=== PATIENT | male | born 1995 | race Caucasian/White ===

== ENCOUNTER 2023-07-09 10:41 | Emergency (ER) | payer SELFPAY ==
[~2023-07-09] VITALS: Ht 167.6 cm; Wt 63.5 kg
[2023-07-09 10:58] VITALS: BP 140/110; PULSE 123; RESP 20; TEMP 98.4; O2SAT 98
[2023-07-09] MEDS ORDERED: levETIRAcetam 500 MG TAB PO ONE (11:05)
[2023-07-09] MEDS ORDERED: NACL 0.9% 1,000 ML IV ONE ×2 (11:10→12:05)
[2023-07-09] MEDS ORDERED: levETIRAcetam 1,000 MG in NACL 0.9% 100 ML IV ONE (11:10)
[2023-07-09] MEDS ORDERED: LORazepam 1 MG TAB PO ONE (11:15)
[2023-07-09 11:18] LABS: BASOPHILS % (AUTO) 0.2 % (0.0-2.0); HEMATOCRIT 42.3 % (36-52); HEMOGLOBIN 15.1 g/dL (12.0-18.0); LYMPHOCYTES # (AUTO) 1.1 K/uL (2.0-11.5); LYMPHOCYTES % (AUTO) 10.2 % (20.5-51.1); MEAN CORPUSCULAR HEMOGLOBIN 33 pg (27-31); MEAN CORPUSCULAR HGB CONC 36 g/dL (33-37); MEAN CORPUSCULAR VOLUME 90.8 fL (80-94); MONOCYTES % (AUTO) 9.8 % (1.7-9.3); NEUTROPHILS # (AUTO) 8.3 K/uL (1.8-7.7); NEUTROPHILS % (AUTO) 79.8 % (42.2-75.2); PLATELET COUNT (AUTO) 221 K/uL (140-450); RED BLOOD CELL COUNT(AUTO) 4.66 MIL/uL (4.20-6.10); RED CELL DISTRIBUTION WIDTH 13.3 % (11.6-13.7); WHITE BLOOD COUNT (AUTO) 10.4 K/uL (4.8-10.8)
[2023-07-09] MEDS ORDERED: levETIRAcetam 100 MG/ML VIAL IV ONE (11:32)
[2023-07-09 11:43] LABS: ALBUMIN 3.9 g/dL (3.4-5.0); ANION GAP 17.9 (8-16); CALCIUM 9.2 mg/dL (8.5-10.1); CARBON DIOXIDE 24.4 mmol/L (21-32); CREATININE 1.1 mg/dL (0.6-1.3); MAGNESIUM 2.7 mg/dL (1.8-2.4); POTASSIUM 3.3 mmol/L (3.5-5.1); THYROID STIMULATING HORMONE 2.36 uIU/mL (0.34-3.74); TOTAL PROTEIN, SERUM 8.6 g/dL (6.4-8.2)
[2023-07-09] MEDS ORDERED: PANT40EC PO (12:51)
[2023-07-09 13:19] VITALS: BP 142/78; PULSE 107; RESP 20; TEMP 98.4; O2SAT 98
== END 2023-07-09 13:19 | disposition home or self-care (01) ==
LOC: MED 10:41
DX: R56.9 Unspecified convulsions (principal); E87.6 Hypokalemia; F10.90 Alcohol use, unspecified, uncomplicated; Y90.9 Presence of alcohol in blood, level not specified
CPT/HCPCS: 36415; 71045; 80053; 83735; 84443; 85025; 93005; 96361; 96365; 99285; J1953; J7030; Q0092